=== PATIENT | female | born 1965 | race African-American/Black ===

== ENCOUNTER 2017-02-05 13:33 | Inpatient (IN) | payer MEDICAID ==
[~2017-02-05] VITALS: Ht 175.3 cm; Wt 78.0 kg
[2017-02-05 16:13] LABS: BASOPHILS % 0.5 % (0.0-2.0); EOSINOPHILS % 0.5 % (0.0-5.0); HEMATOCRIT. 44.2 % (36.0-48.0); HEMOGLOBIN. 14.5 g/dL (12.0-16.0); LYMPHOCYTES % 20.7 % (20.0-50.0); MEAN CORPUSCULAR HEMOGLOBIN 29.8 pg (28.0-32.0); MEAN CORPUSCULAR VOLUME 90.9 fL (81.0-99.0); MEAN PLATELET VOLUME 8.5 fl (7.4-10.4); MONOCYTES % 10.8 % (2.0-8.0); NEUTROPHILS % 67.5 % (40.0-76.0); PLATELET 288 x1000/uL (130-400); RED BLOOD CELL COUNT 4.86 mill/uL (4.2-5.4); RED CELL DISTRIBUTION WIDTH 15.2 % (11.6-14.6)
[2017-02-05 16:21] LABS: PROTHROMBIN TIME 10.3 sec (9.4-11.6)
[2017-02-05 16:25] LABS: CARBON DIOXIDE 26 mEq/L (21-32); CHLORIDE 104 mEq/L (98-107)
[2017-02-05 16:29] LABS: TROPONIN I < 0.02 ng/mL (0.00-0.04)
[2017-02-05 17:50] LABS: CLARITY URINE CLOUDY (CLEAR); COLOR URINE DARK YELLOW (YELLOW); GLUCOSE URINE NEGATIVE (NEGATIVE); KETONES URINE TRACE (NEGATIVE); LEUKOCYTE ESTERASE URINE 1+ (NEGATIVE); NITRITE URINE NEGATIVE (NEGATIVE); OCCULT BLOOD URINE NEGATIVE (NEGATIVE); PH URINE 5.5 (4.5-8.0); PROTEIN URINE 1+ (NEGATIVE); SPECIFIC GRAVITY URINE 1.037 (1.005-1.030)
[2017-02-05 17:53] LABS: HCG SCREEN NEGATIVE
[2017-02-05] MEDS ORDERED: ONDANSETRON HCL 4MG/2ML VIAL IV STA (18:22)
[2017-02-05] MEDS ORDERED: NITROGLYCERIN OINT 1GM/INCH UDPKT TD STA (18:22)
[2017-02-05] MEDS ORDERED: ASPIRIN 81MG TABLET PO STA (18:22)
[2017-02-05] MEDS ORDERED: MORPHINE SULFATE 4 MG/ML CPJ (NOT FOR IM USE) IV STA (18:22)
[2017-02-05] MEDS ORDERED: LEVOFLOXACIN 500MG TABLET PO ONE (18:45)
[2017-02-05] MEDS ORDERED: HYDROCODONE/ACETAMINOPHEN 5/325MG TABLET PO ONE (22:15)
[2017-02-05] MEDS ORDERED: LORAZEPAM 2MG/ML CPJ IV ONE (22:15)
[2017-02-06] VITALS: BP_SYST 118; BP_SYST 159; BP_DIAS 65; BP_DIAS 95
[2017-02-06 00:30] VITALS: BP 118/65
[2017-02-06] MEDS ORDERED: DEXTROSE 50% WATER 50ML SYRINGE IV PRN (01:00)
[2017-02-06] MEDS: ALPRAZOLAM 0.25 MG TABLET PO PRN ×3 (02:06→20:37)
[2017-02-06 04:00] VITALS: BP 105/67
[2017-02-06] MEDS: BLOOD SUGAR DIAGNOSTIC STRIP TEST SCH ×4 (07:03→20:37)
[2017-02-06] MEDS: INSULIN LISPRO 100 UNITS/ML SUBCUT SCH ×4 (07:03→20:37)
[2017-02-06 07:07] LABS: CARBON DIOXIDE 29 mEq/L (21-32); CHLORIDE 101 mEq/L (98-107); CREATINE KINASE 35 IU/L (26-192); CREATINE KINASE MB FRACTION 0.9 ng/mL (0.5-3.6); TROPONIN I < 0.02 ng/mL (0.00-0.04)
[2017-02-06] MEDS: HYDROCODONE/ACETAMINOPHEN 10/325MG TABLET PO PRN ×2 (10:08→16:56)
[2017-02-06] MEDS: GLIPIZIDE 5MG XL TABLET PO SCH (10:08)
[2017-02-06 10:12] VITALS: BP 111/71
[2017-02-06] MEDS ORDERED: REGADENOSON 0.4 MG/5 ML IV SCH (11:00)
[2017-02-06] MEDS ORDERED: POTASSIUM CHLORIDE 20MEQ TABLET SR PO SCH (11:00)
[2017-02-06] MEDS ORDERED: REGADENOSON 0.4 MG/5 ML IV ONE (11:55)
[2017-02-06] MEDS: ASPIRIN 81MG TABLET PO SCH (14:13)
[2017-02-06 14:15] LABS: T4 FREE 0.85 ng/dL (0.76-1.46)
[2017-02-06] MEDS: ENOXAPARIN 40MG/0.4ML SYR SUBCUT SCH (14:16)
[2017-02-06 14:48] LABS: CREATINE KINASE 32 IU/L (26-192); TROPONIN I < 0.02 ng/mL (0.00-0.04)
[2017-02-06] MEDS: SODIUM CHLORIDE 0.45% 1,000 ML IV SCH ×2 (16:57→17:45)
[2017-02-06 17:27] LABS: CLARITY URINE TURBID (CLEAR); COLOR URINE YELLOW (YELLOW); GLUCOSE URINE NEGATIVE (NEGATIVE); KETONES URINE NEGATIVE (NEGATIVE); LEUKOCYTE ESTERASE URINE 3+ (NEGATIVE); NITRITE URINE NEGATIVE (NEGATIVE); OCCULT BLOOD URINE NEGATIVE (NEGATIVE); PROTEIN URINE TRACE (NEGATIVE); SPECIFIC GRAVITY URINE 1.021 (1.005-1.030)
[2017-02-06 17:51] LABS: *AMPHETAMINES SCREEN URINE NEGATIVE (NEGATIVE); *BARBITURATES SCREEN URINE NEGATIVE (NEGATIVE); *COCAINE SCREEN URINE NEGATIVE (NEGATIVE); CANNABINOID URINE SCREEN NEGATIVE (NEGATIVE); METHADONE URINE SCREEN NEGATIVE (NEGATIVE); PHENCYCLIDINE URINE SCREEN NEGATIVE (NEGATIVE)
[2017-02-06 18:00] VITALS: BP 118/81
[2017-02-06 18:03] LABS: *BENZODIAZEPINES SCREEN URINE PRESUMTIVE POSITIVE (NEGATIVE); OPIATES URINE SCREEN PRESUMTIVE POSITIVE (NEGATIVE)
[2017-02-06 23:45] LABS: CREATINE KINASE 28 IU/L (26-192); CREATINE KINASE MB FRACTION 0.6 ng/mL (0.5-3.6); TROPONIN I < 0.02 ng/mL (0.00-0.04)
[2017-02-07] VITALS: BP 128/84
[2017-02-07 04:00] VITALS: BP 116/77
[2017-02-07] MEDS: SODIUM CHLORIDE 0.45% 1,000 ML IV SCH (06:35)
[2017-02-07] MEDS: HYDROCODONE/ACETAMINOPHEN 10/325MG TABLET PO PRN (06:37)
[2017-02-07] MEDS: BLOOD SUGAR DIAGNOSTIC STRIP TEST SCH ×2 (06:37→12:08)
[2017-02-07] MEDS: INSULIN LISPRO 100 UNITS/ML SUBCUT SCH ×2 (06:37→12:08)
[2017-02-07 08:00] VITALS: BP 113/65
[2017-02-07 08:24] LABS: CREATINE KINASE 26 IU/L (26-192); CREATINE KINASE MB FRACTION < 0.5 ng/mL (0.5-3.6); TROPONIN I < 0.02 ng/mL (0.00-0.04)
[2017-02-07] MEDS: ASPIRIN 81MG TABLET PO SCH (08:26)
[2017-02-07] MEDS: ALPRAZOLAM 0.25 MG TABLET PO PRN (08:26)
[2017-02-07] MEDS: GLIPIZIDE 5MG XL TABLET PO SCH (08:26)
[2017-02-07] MEDS: ENOXAPARIN 40MG/0.4ML SYR SUBCUT SCH (11:00)
[2017-02-07 12:17] VITALS: BP 113/65
== END 2017-02-07 13:00 | disposition home or self-care (01) | DRG 243 ==
LOC: ER 13:33 → 5WST 18:36 → ENRESERV 22:22 → 5WST 02-06 01:51
PROVIDERS: ADMIT Family Medicine; ATTEND Family Medicine
DX: K21.9 Gastro-esophageal reflux disease without esophagitis (principal); E11.22 Type 2 diabetes mellitus with diabetic chronic kidney disease; M32.9 Systemic lupus erythematosus, unspecified; I25.2 Old myocardial infarction; N18.9 Chronic kidney disease, unspecified; I12.9 Hypertensive chronic kidney disease with stage 1 through stage 4 chronic kidney disease, or unspecified chronic kidney disease; F41.9 Anxiety disorder, unspecified; E78.5 Hyperlipidemia, unspecified; F17.210 Nicotine dependence, cigarettes, uncomplicated; G40.909 Epilepsy, unspecified, not intractable, without status epilepticus; Z59.0 Homelessness; Z86.73 Personal history of transient ischemic attack (TIA), and cerebral infarction without residual deficits; Z88.1 Allergy status to other antibiotic agents; Z88.8 Allergy status to other drugs, medicaments and biological substances; Z88.6 Allergy status to analgesic agent; M94.0 Chondrocostal junction syndrome [Tietze]
CPT/HCPCS: 36415; 71010; 78452; 80053; 80061; 80305; 81001; 82550; 82553; 82962; 83036; 83605; 83880; 84439; 84443; 84484; 84703; 85025; 85379; 85610; 85730; 87040; 87077; 87086; 93005; 93017; 93306; 93970; 96374; 96375; 99291; A9500; J1650; J1815; J2060; J2270; J2405; J2785; J7030; J7050